=== PATIENT | male | born 1965 | race Caucasian/White ===

== ENCOUNTER 2016-07-23 18:40 | Emergency (ER) | payer OTHER ==
[~2016-07-23 18:40] MED LIST: BACTRIM DS TABL1 TA1 PO; CATAFLAM50 MG PO; CHANTIX1 MG; LOPRESSOR PO
[2016-07-23 20:05] LABS: BASOPHIL# 0.1 X10e3 (0-0.3); BASOPHIL% 0.9 % (0-2.5); EOSINOPHIL# 0.1 X10e3 (0-0.7); EOSINOPHIL% 0.9 % (0.0-7.0); HEMATOCRIT 45.7 % (38.0-50.0); HEMOGLOBIN 15.2 gm/dL (13.0-16.0); LYMPHOCYTE# 1.4 X10e3 (1.0-3.5); LYMPHOCYTE% 17.6 % (17.0-45.0); MEAN CELL VOLUME 89.5 FL (83-96); MEAN CORPUSCULAR HEMOGLOBIN 29.8 PG (28-34); MEAN CORPUSCULAR HGB CONC 33.3 g/dL (30-36); MEAN PLATELET VOLUME 7.5 FL (6.5-11.5); MONOCYTE# 0.7 X10e3 (0-1.0); MONOCYTE% 8.9 % (3.0-12.0); NEUTROPHIL# 5.5 X10e3 (1.5-7.1); NEUTROPHIL% 71.7 % (40-75); PLATELET COUNT 236 X10e3 (140-420); RED BLOOD COUNT 5.11 X10e (3.90-5.60); RED CELL DISTRIBUTION WIDTH 13.5 % (11.0-15.5); WHITE BLOOD COUNT 7.7 X10e3 (4.0-10.5)
[2016-07-23 20:09] LABS: DIFF IND NO
[2016-07-23 20:28] LABS: BLOOD UREA NITROGEN 25 mg/dL (9-23); BUN/CREATININE RATIO 15.62; CALCIUM SERUM 9.6 mg/dL (8.4-10.2); CARBON DIOXIDE 29 mmol/L (22-31); CHLORIDE 102 mmol/L (100-111); CREATININE SERUM 1.6 mg/dL (0.6-1.4); GLOM FILT RATE Estimated 49.2 mL/min (>60); GLUCOSE FASTING 114 mg/dL (70-110); POTASSIUM 3.1 mmol/L (3.5-5.1); SODIUM 139 mmol/L (135-145)
[2016-07-23 20:43] LABS: ALCOHOL BLOOD <5 mg/dL (0)
== END 2016-07-23 20:40 | disposition left against medical advice (07) ==
LOC: CED 18:40
PROVIDERS: Emergency Medicine
DX: F19.10 Other psychoactive substance abuse, uncomplicated (principal); F41.9 Anxiety disorder, unspecified; F17.200 Nicotine dependence, unspecified, uncomplicated; Z88.0 Allergy status to penicillin; Z88.5 Allergy status to narcotic agent; Z79.899 Other long term (current) drug therapy
CPT/HCPCS: 36415; 80048; 85025; 99285; G0480